=== PATIENT | male | born 1980 | race Two or more races ===

== ENCOUNTER 2020-09-27 11:06 | Emergency (ER) | payer SELFPAY ==
[~2020-09-27] VITALS: Ht 172.7 cm; Wt 150.0 kg
--- NOTE | 2020-09-27 11:39 | PHYS DOC ---
General Adult EDM: Chief Complaint: RIB PAIN HPI: HPI: Patient is a 39 year old male who presents with left-sided flank pain that is a pressure or dull type pain that radiates to his side of his ribs around to his back flank area. He states this began over the last 2 days. He states he takes Tylenol or ibuprofen to help it. He states at times when he sits down it feels better but currently he is at a 7 out of 10 when he is sitting. He states when he is up and moving around it is worse. He denies any injuries to his back or remembering pulling any muscles in his back. He states that it hurts to take a deep breath due to this or that he cannot take a deep breath due to the pain that he is having. Patient states that he has intermittent nausea but no vomiting. Patient denies chest pain, shortness of air, vomiting, diarrhea, fever, abdominal pain, urinary symptoms, headache, dizziness, fall, focal weakness, numbness or tingling. Review of Systems: Review of Systems: Constitutional: Denies fever or chills. [] Eyes: Denies change in visual acuity. [] HENT: Denies nasal congestion or sore throat. [] Respiratory: Denies cough or shortness of breath. + Hard to take a deep breath due to pain. [] Cardiovascular: Denies chest pain or edema. [] GI: Denies abdominal pain, +nausea, denies vomiting, bloody stools or diarrhea. [] : Denies dysuria. [] Musculoskeletal: + Left flank, denies back pain or joint pain. [] Integument: Denies rash. [] Neurologic: Denies headache, focal weakness or sensory changes. [] Endocrine: Denies polyuria or polydipsia. [] Lymphatic: Denies swollen glands. [] Psychiatric: Denies depression or anxiety. [] Heart Score: Risk Factors: Risk Factors: DM, Current or recent (<one month) smoker, HTN, HLP, family history of CAD, obesity. Risk Scores: Score 0 - 3: 2.5% MACE over next 6 weeks - Discharge Home Score 4 - 6: 20.3% MACE over next 6 weeks - Admit for Clinical Observation Score 7 - 10: 72.7% MACE over next 6 weeks - Early Invasive Strategies Physical Exam: PE: Constitutional: Well developed, well nourished, no acute distress, non-toxic appearance. [] HENT: Normocephalic, atraumatic, bilateral external ears normal, oropharynx moist, no oral exudates, nose normal. [] Eyes: PERRLA, EOMI, conjunctiva normal, no discharge. [] Neck: Normal range of motion, no tenderness, supple, no stridor. [] Cardiovascular:Heart rate regular rhythm, no murmur [] Lungs & Thorax: Bilateral breath sounds clear to auscultation [] Abdomen: Bowel sounds normal, soft, no tenderness, no masses, no pulsatile masses. [] Skin: Warm, dry, no erythema, no rash. [] Back: No tenderness, left CVA tenderness. [] Extremities: No tenderness, no cyanosis, no clubbing, ROM intact, no edema. [] Neurologic: Alert and oriented X 3, normal motor function, normal sensory function, no focal deficits noted. [] Psychologic: Affect normal, judgement normal, mood normal. [] EKG: EKG: [] Radiology/Procedures: Radiology/Procedures: [] Impression: [facility] [address] [place] [address] IMAGING REPORT Signed PATIENT: NIKO WYATT ACCOUNT: [id number] : 1980 LOCATION: ER AGE: 39 SEX: M EXAM STATUS: REG ER ORD. PHYSICIAN: KRISTAN CENTENO APRN REASON: LEFT FLANK PAIN, NAUSEA PROCEDURE: CT ABDOMEN PELVIS WO CONTRAST CT of the abdomen and pelvis without contrast. 09/27/2020 11:31 AM Indication: Reason: LEFT FLANK PAIN, NAUSEA / Spl. Instructions: / History: Comparison Study: None. Technique: Multidetector CT imaging of the abdomen pelvis is obtained without administration of contrast. Findings: The visualized bilateral lung bases are clear. The liver, spleen, bilateral adrenal glands, gallbladder, and pancreas an unremarkable noncontrast enhanced appearance. The bilateral kidneys are grossly normal in appearance. There is no evidence of nephrolithiasis or obstructive uropathy. The ureters are normal in course and caliber. Bladder is completely decompressed limiting evaluation. There is no significant free fluid or free air in the abdomen or pelvis. There is no evidence of bowel obstruction or significant inflammatory change involving the bowel. The appendix is unremarkable.. There is no acute osseous abnormality identified. Impression: 1. No evidence of acute intra-abdominal abnormality 2. No evidence of nephrolithiasis or acute obstructive uropathy. CT DOSING PQRS STATEMENT: One or more of the following individualized dose reduction techniques were utilized for this examination: 1. Automated exposure control 2. Adjustment of the mA and/or kV according to patient size 3. Use of iterative reconstruction technique Electronically signed by: Gumaro Ugalde MD (09/27/2020 12:03 PM) [id number] DICTATED and SIGNED BY: GUMARO UGALDE MD DATE: 09/27/20 [id number] [facility] [address] [facility] [place] [address] IMAGING REPORT Signed PATIENT: NIKO WYATT ACCOUNT: [id number] : 1980 LOCATION: ER AGE: 39 SEX: M EXAM STATUS: REG ER ORD. PHYSICIAN: KRISTAN CENTENO APRN REASON: side pain, soa, NO KNOWN INJURY PROCEDURE: RIBS BILAT & PA CXR 4+V EXAM: RIBS BILAT PA CXR 4+V 09/27/2020 12:50 PM CLINICAL INDICATION:Side pain, shortness of breath COMPARISON:None TECHNIQUE:PA view the chest and AP and oblique views of the bilateral ribs FINDINGS:The cardiomediastinal silhouette is normal. Lungs are hypoexpanded with bilateral perihilar opacities, likely atelectasis. The pleural effusion or pneumothorax. No rib fracture identified. IMPRESSION: 1. No acute fracture. 2. Bilateral perihilar opacities, likely atelectasis related to hypoexpansion of the lungs. Electronically signed by: Hazel Broussard MD (09/27/2020 1:41 PM) [id number] DICTATED and SIGNED BY: HAZEL BROUSSARD MD DATE: 09/27/20 [id number] Course & Med Decision Making: Course & Med Decision Making Pertinent Labs and Imaging studies reviewed. (See chart for details) See HPI. Abdomen is soft and nontender. Left CVA tenderness. Ambulatory with a steady gait. Speaks in full complete sentences. He is Gambian-speaking only and well head pumper phone is used. Alert and oriented x4. Skin pink warm and dry. He denies any past medical history and he states he takes no medications daily. He states that Tylenol and ibuprofen do help subside his pain for a small amount of time. Well's 0 and PERC 0. Vital signs are within normal limits. CT shows no acute findings. Blood work is unremarkable. Chest xray shows IMPRESSION: 1. No acute fracture. 2. Bilateral perihilar opacities, likely atelectasis related to hypoexpansion of the lungs. COVID-19 CRITERIA: The patient was evaluated during the global COVID-19 pandemic, and that diagnosis was suspected/considered upon their initial presentation. Their evaluation, treatment and testing was consistent with current guidelines for patients who present with complaints or symptoms that may be related to COVID-19. Dragon Disclaimer: Dragon Disclaimer: This electronic medical record was generated, in whole or in part, using a voice recognition dictation system. COVID-19 Patient Risks: Age 65 or older: No Sign of co-morbidity: Yes Exp to person + for COVID: No Exp to PUI: No Travel from affected area: No Lower respiratory symptoms: Yes Fever: No Other: No PPE Use: Full PPE with N95 mask or PAPR: Yes Departure Departure Impression: Primary Impression: Back pain Qualified Codes: M54.5 - Low back pain Additional Impressions: Pneumonia Qualified Codes: J18.9 - Pneumonia, unspecified organism Person under investigation for COVID-19 Disposition: 01 DC HOME SELF CARE/HOMELESS Condition: STABLE Referrals: NO PCP (PCP) Patient Instructions: Back Pain, Adult, Pneumonia, Adult Additional Instructions: Follow up with primary care provider as soon as possible. Take medications as prescribed. Definicin Se le realiz la prueba de deteccin del COVID-19 o se le diagnostic dicha enfermedad. Es franki infeccin ocasionada por un nuevo tipo de coronavirus. En la mayora de los casos, el COVID-19 provoca sntomas similares a los del resfriado. En algunas personas, puede ocasionar sntomas ms graves, sravanthi problemas respiratorios. No existe un tratamiento para el virus COVID-19. El cuerpo elimina la infeccin con el tiempo. El cuidado personal ayuda a aliviar el malestar. Pasos que debe seguir 1. Cuidados personales Descanse cuando sea necesario. Los hbitos saludables pueden ayudarlo a sentirse mejor. Algunas medidas para lograr cambios incluyen lo siguiente: - Elija alimentos saludables, sravanthi frutas y verduras. Lucretia abundante cantidad de agua cristian todo el da. - Duerma nina por la noche. - Si fuma, intente no hacerlo. [place] ayudar a mejorar la respiracin. - Evite el alcohol. 2. Mantenga sanos a los dems El virus puede contagiarse a otras personas. Cada vez que estornuda o tose, se liberan gotitas. Las gotitas pueden entrar en la boca, la nariz o los ojos de las personas que se encuentran cerca de usted y ocasionar la infeccin. Para reducir las probabilidades de contagiar el virus COVID-19 a otros, tenga en cuenta lo siguiente: - Qudese en casa el tiempo que el mdico se lo indique. Es posible que deba quedarse en casa hasta que la enfermedad desaparezca. Salga nicamente para recibir atencin mdica o en kristen de urgencia. - Evite las reas pblicas, los eventos o el transporte pblico. No reanude las actividades laborales o escolares hasta que el mdico lo autorice. - Llame previamente si necesita asistir a un centro mdico. Avise que es posible que haya contrado COVID-19. [place] ayudar a que le indiquen adonde debe dirigirse. Erinn pueden pedirle que use franki mscara facial cuando vaya al consultorio. Si llama a los servicios de asistencia mdica de urgencias, avseles que es posible que haya contrado COVID-19. Mientras est en casa: - Evite el contacto directo con otras personas. Mantngase a franki distancia aproximada de 2 metros. Si es posible, pasen la mayor parte del tiempo en ken separadas. - Use franki mscara facial si estar en contacto directo con otras personas, por ejemplo, si compartir franki habitacin o un vehculo. - Pida a alguien que limpie las superficies comunes de la casa. Limpie picaportes, mesadas y lavamanos con limpiadores domsticos todos los dhaliwal. - Al toser o estornudar, cbrase con un pauelo de papel. Despus de usarlo, deschelo de inmediato. Si no tiene un pauelo de papel, tosa o estornude en el pliegue del codo. - Lvese las marilee con frecuencia. Lvese las marilee despus de estornudar o toser. Lvese con agua y jabn cristian, al menos, 20 segundos. Si no dispone de agua y jabn, use un limpiador de marilee a base de alcohol. - No cocine para otros. Evite compartir objetos personales, sravanthi tenedores, cucharas o cepillos de dientes. - Mientras est enfermo, evite el contacto directo con las mascotas. No hay indicios de si el virus se transmite a las mascotas. Esta es franki medida de seguridad que debe tenerse en cuenta hasta que se sepa ms acerca de henrry virus. El aislamiento puede ser frustrante. La interaccin social puede ayudar. Mantngase en contacto con amigos y familiares por telfono u otros medios tecnolgicos. Puede interactuar con otras personas en el hogar, maria teresa mantenga franki distancia garcía de aproximadamente 2 metros. Seguimiento Las pruebas para confirmar la presencia del COVID-19 pueden demorar algunos dhaliwal. Es posible que deba seguir los pasos mencionados anteriormente hasta que estn los resultados de las pruebas. Lo llamarn del consultorio mdico para saber si redman habido algn cambio en lundberg onofre. Tambin le avisarn cuando pueda volver a estar cerca de otras personas. Problemas a los que debe estar atento Comunquese con el mdico si no se recupera segn lo previsto o si tiene problemas sravanthi los siguientes: - Dificultad para respirar - Dolor de pecho - Empeoramiento de los sntomas Si masha que tiene franki urgencia, llame a los servicios de asistencia mdica de urgencias de inmediato. As taken from [facility] Azithromycin (AZITHROMYCIN TABLET) 250 Mg Tablet 1 PKG PO UD for 5 Days, #6 TAB 0 Refills 2 the first day followed by 1 for days 2-5 Prov: KRISTAN CENTENO TRAVERTINE INSTALLER 09/27/20 Methylprednisolone (MEDROL) 4 Mg Tab.ds.pk 1 PKG PO UD, #1 PKG Prov: BAFBRIDGETT SANCHEZA M TRAVERTINE INSTALLER 09/27/20 Orphenadrine Citrate (ORPHENADRINE CITRATE) 100 Mg Tablet.er 1 TAB PO BID, #14 TAB Prov: BAFUSBRIDGETTA M TRAVERTINE INSTALLER 09/27/20 Ibuprofen (IBUPROFEN) 600 Mg Tablet 600 MG PO PRN Q6HRS PRN for INFLAMMATION, #20 TAB Prov: BAFBRIDGETT SANCHEZA M TRAVERTINE INSTALLER 09/27/20 BAFKRISTAN SANCHEZ TRAVERTINE INSTALLER Sep 27, 2020 11:39
[2020-09-27] MEDS ORDERED: IV NORMAL SALINE 1000ML BAG 1,000 ML IV SCH (11:45)
[2020-09-27] MEDS ORDERED: ONDANSETRON PF 4 MG/2 ML VIAL. IVP ONE (11:45)
[2020-09-27] MEDS ORDERED: fentaNYL PF VIAL 100 MCG/2 ML VIAL IVP ONE (11:45)
[2020-09-27 11:48] LABS: BASO % 1 % (0-3); EOS # 0.1 x10^3/uL (0.0-0.7); EOS % 2 % (0-3); HEMATOCRIT 46.4 % (39.0-53.0); HEMOGLOBIN 15.8 g/dL (13.0-17.5); LYMPH # 1.6 x10^3/uL (1.0-4.8); LYMPH % 27 % (24-48); MEAN CORPUSCULAR HEMOGLOBIN 30 pg (25-35); MEAN CORPUSCULAR HGB CONC 34 g/dL (31-37); MEAN CORPUSCULAR VOLUME 88 fL (79-100); MONO % 17 % (0-9); NEUT # 3.1 x10^3/uL (1.8-7.7); NEUT % 53 % (31-73); PLATELET COUNT 215 x10^3/uL (140-400); RED BLOOD COUNT 5.28 x10^6/uL (4.30-5.70); RED CELL DISTRIBUTION WIDTH 14.1 % (11.5-14.5); WHITE BLOOD COUNT 5.8 x10^3/uL (4.0-11.0)
[2020-09-27 12:00] LABS: CALCIUM 8.6 mg/dL (8.5-10.1); CREATININE 0.8 mg/dL (0.7-1.3); GFR 107.6
--- NOTE | 2020-09-27 12:05 | RAD ---
CT of the abdomen and pelvis without contrast. 09/27/2020 11:31 AM Indication: Reason: LEFT FLANK PAIN, NAUSEA / Spl. Instructions: / History: Comparison Study: None. Technique: Multidetector CT imaging of the abdomen pelvis is obtained without administration of contrast. Findings: The visualized bilateral lung bases are clear. The liver, spleen, bilateral adrenal glands, gallbladder, and pancreas an unremarkable noncontrast enhanced appearance. The bilateral kidneys are grossly normal in appearance. There is no evidence of nephrolithiasis or obstructive uropathy. The ureters are normal in course and caliber. Bladder is completely decompressed limiting evaluation. There is no significant free fluid or free air in the abdomen or pelvis. There is no evidence of bowel obstruction or significant inflammatory change involving the bowel. The appendix is unremarkable.. There is no acute osseous abnormality identified. Impression: 1. No evidence of acute intra-abdominal abnormality 2. No evidence of nephrolithiasis or acute obstructive uropathy. CT DOSING PQRS STATEMENT: One or more of the following individualized dose reduction techniques were utilized for this examination: 1. Automated exposure control 2. Adjustment of the mA and/or kV according to patient size 3. Use of iterative reconstruction technique Electronically signed by: Gumaro Islas MD (09/27/2020 12:03 PM) [id number]
[2020-09-27 12:06] LABS: ALBUMIN 3.3 g/dL (3.4-5.0); ALBUMIN/GLOBULIN RATIO 0.8 (1.0-1.7); TOTAL BILIRUBIN 0.2 mg/dL (0.2-1.0); TOTAL PROTEIN 7.2 g/dL (6.4-8.2)
[2020-09-27 12:29] LABS: BILIRUBIN,URINE NEGATIVE (NEG); CLARITY,URINE CLEAR; COLOR,URINE YELLOW; NITRITE,URINE NEGATIVE (NEG); PH,URINE 5.5 (<5.0-8.0); PROTEIN,URINE NEGATIVE (NEG-TRACE); UROBILINOGEN,URINE 0.2 mg/dL (0.2 mg/dL)
[2020-09-27 12:46] LABS: BACTERIA,URINE 0 /HPF (0-FEW); RBC,URINE OCC /HPF (0-2); WBC,URINE OCC /HPF (0-4)
[2020-09-27] MEDS ORDERED: ORPH100T PO (12:51)
[2020-09-27] MEDS ORDERED: HYDR-3164 PO (12:51)
[2020-09-27] MEDS ORDERED: IBUP-1007 PO (12:51)
[2020-09-27 13:00] VITALS: BP 119/68
--- NOTE | 2020-09-27 13:44 | RAD ---
EXAM: RIBS BILAT PA CXR 4+V 09/27/2020 12:50 PM CLINICAL INDICATION:Side pain, shortness of breath COMPARISON:None TECHNIQUE:PA view the chest and AP and oblique views of the bilateral ribs FINDINGS:The cardiomediastinal silhouette is normal. Lungs are hypoexpanded with bilateral perihilar opacities, likely atelectasis. The pleural effusion or pneumothorax. No rib fracture identified. IMPRESSION: 1. No acute fracture. 2. Bilateral perihilar opacities, likely atelectasis related to hypoexpansion of the lungs. Electronically signed by: Danna Broussard MD (09/27/2020 1:41 PM) [id number]
[2020-09-27] MEDS ORDERED: AZIT250T6 PO (13:57)
[2020-09-27] MEDS ORDERED: METH4TAB2 PO (13:57)
--- NOTE | 2020-09-29 10:25 | NUR ---
IP: Attempted to call COVID results. No answer. Left a voicemail to return call.
== END 2020-09-27 15:23 | disposition home or self-care (01) ==
LOC: ER 11:06
DX: U07.1 COVID-19 (principal); J18.9 Pneumonia, unspecified organism; M54.5 Low back pain; R10.9 Unspecified abdominal pain; R06.02 Shortness of breath
CPT/HCPCS: 36415; 71111; 74176; 80053; 81001; 85025; 96361; 96374; 96375; 99285; C9803; J2405; J3010; J7030; U0003